=== PATIENT | female | born 1955 ===

== ENCOUNTER 2021-01-28 08:46 | Day surgery (SDC) | payer MEDICARE, BC ==
[2021-01-25 14:01] VITALS: BMI 58.2
[~2021-01-28 08:46] MED LIST: LACTATED RINGERS 1,000 ML IV SCH
[2021-01-28 09:24] VITALS: TEMP 98
[2021-01-28 09:26] LABS: Glucose,Whole Blood 171 mg/dL (75-99)
[2021-01-28] MEDS ORDERED: LACTATED RINGERS 1,000 ML IV ONE (09:28)
[2021-01-28] MEDS ORDERED: MIDAZOLAM 2 MG/2 ML VIAL ONE (09:39)
[2021-01-28] MEDS ORDERED: fentaNYL (PF) 50 MCG/ML 2 ML AMP ONE (09:39)
[2021-01-28] MEDS ORDERED: KETAMINE 10 MG/ML 20 ML VIAL ONE (09:39)
[2021-01-28] MEDS ORDERED: PROPOFOL 10 MG/ML 20 ML VIAL IV ONE (09:39)
[2021-01-28] MEDS ORDERED: LIDOCAINE 1% INJ 10MG/ML (20 ML MDV) ONE (09:39)
[2021-01-28 10:13] VITALS: RESP 18
--- NOTE | 2021-01-28 10:16 | P.GSHP ---
History of Present Illness H&P Date: 01/28/21 CHIEF COMPLAINT: Colon screen HISTORY OF PRESENT ILLNESS: The patient is a 66-year-old female who presents for colon screen. Lower endoscopy was offered for further evaluation and management. PAST MEDICAL HISTORY: Please see list. PAST SURGICAL HISTORY: Please see list. MEDICATIONS: Please see list. ALLERGIES: Please see list. SOCIAL HISTORY: No illicit drug use FAMILY HISTORY: No reports of Crohn disease or ulcerative colitis. REVIEW OF ORGAN SYSTEMS: CONSTITUTIONAL: No reports of fevers or chills. PHYSICAL EXAM: VITAL SIGNS: Stable GENERAL: Well-developed pleasant in no acute distress. HEENT: No scleral icterus. Extraocular movements grossly intact. Moist buccal mucosa. NECK: Supple without lymphadenopathy. CHEST: Unlabored respirations. Equal bilateral excursions. CARDIOVASCULAR: Regular rate and rhythm. Distal 2+ pulses. ABDOMEN: Soft, nontender, nondistended. MUSCULOSKELETAL: No clubbing, cyanosis, or edema. ASSESSMENT: 1. Colon screen. PLAN: 1. Recommend proceeding with a lower endoscopy Past Medical History Past Medical History: Diabetes Mellitus, Hyperlipidemia, Hypertension, Sleep Apnea/CPAP/BIPAP Additional Past Medical History / Comment(s): pneumonia around 2019, needed to be trached and had feeding tube History of Any Multi-Drug Resistant Organisms: MRSA Date of last positivie culture/infection: 2018 MDRO Source:: throat/lungs Past Surgical History: Hysterectomy Additional Past Surgical History / Comment(s): Bilateral Cataracts removed. nose OR as a child Past Anesthesia/Blood Transfusion Reactions: No Reported Reaction Past Psychological History: No Psychological Hx Reported Smoking Status: Never smoker Past Alcohol Use History: None Reported Past Drug Use History: None Reported Medications and Allergies Home Medications Medication Instructions Recorded Confirmed Type Insulin Glargine [Lantus] 37 unit SQ HS 01/25/21 01/25/21 History Metoprolol Tartrate [Lopressor] 50 mg PO HS 01/25/21 01/25/21 History Simvastatin 40 mg PO HS 01/25/21 01/25/21 History lisinopriL 30 mg PO HS 01/25/21 01/28/21 History metFORMIN HCL [Glucophage] 1,000 mg PO BID 01/25/21 01/25/21 History Allergies Allergy/AdvReac Type Severity Reaction Status Date / Time No Known Allergies Allergy Verified 01/28/21 09:14 Surgical - Exam Vital Signs Temp Pulse Resp Pulse Ox 98 F 76 16 94 L 01/28/21 09:22 01/28/21 09:22 01/28/21 09:22 01/28/21 09:22 Results - Labs Abnormal Lab Results - Last 24 Hours (Table) 01/28/21 Range/Units 09:24 POC Glucose (mg/dL) 171 H (75-99) mg/dL
--- NOTE | 2021-01-28 10:33 | P.PCN ---
Date of Procedure: 01/28/21 Description of Procedure: PREOPERATIVE DIAGNOSIS: Colonoscopy screening. Family history colon cancer, father Morbid obesity due to excess calories, BMI 59.5 POSTOPERATIVE DIAGNOSIS: Colonoscopy screening. Family history colon cancer, father Morbid obesity due to excess calories, BMI 59.5 Poor prep OPERATION: Colonoscopy to the ascending colon SURGEON: Lian Roblero MD. ANESTHESIA: MAC. INDICATIONS: The patient is a 66-year-old female who presents for colonoscopy screening. Last colonoscopy over 7 years ago. Benefits and risks were described and informed consent was obtained. DESCRIPTION OF PROCEDURE: The patient had undergone Suprep. The patient had been brought into the operating room and laid in the left lateral decubitus position. After adequate intravenous sedation, the rectum was examined with 2% lidocaine jelly. External hemorrhoids were encountered. The rectal tone was within normal limits. No lesions were palpated in the rectal vault. An Olympus colonoscope was advanced with abdominal wall pressure to the hub of the scope. The scope reached the distal ascending colon. The prep was poor limiting view of the mucosa with moderate brown liquid stool. No large scattered diverticulosis was encountered. No large colonic polyps were found distal the to ascending colon. Retroflexion of the scope demonstrated grade 3 internal hemorrhoids without active bleeding or inflammation. The colon was desufflated. The patient had tolerated the procedure well. Withdrawal time was over 6 minutes. FINDINGS: Aronchick preparation quality scale 4 (1-5) Internal hemorrhoids, grade 3 External prolapsed hemorrhoids, grade 3 No arteriovenous malformations. No large adenomatous polyps distal to ascending colon RECOMMENDATIONS: 1. Recommend barium enema for cecum and ileocecal valve. 2. Recommend 2 days colon prep 3. For high risk history, repeat colonoscopy 3 years, 2023 Plan - Discharge Summary Discharge Rx Participant: No New Discharge Prescriptions: Continue Insulin Glargine [Lantus] 37 unit SQ HS Simvastatin 40 mg PO HS lisinopriL 30 mg PO HS Metoprolol Tartrate [Lopressor] 50 mg PO HS metFORMIN HCL [Glucophage] 1,000 mg PO BID Discharge Medication List Insulin Glargine [Lantus] 37 unit SQ HS 01/25/21 [History] Metoprolol Tartrate [Lopressor] 50 mg PO HS 01/25/21 [History] Simvastatin 40 mg PO HS 01/25/21 [History] lisinopriL 30 mg PO HS 01/25/21 [History] metFORMIN HCL [Glucophage] 1,000 mg PO BID 01/25/21 [History] Follow up Appointment(s)/Referral(s): Lian Roblero MD [STAFF PHYSICIAN] - 02/16/21 Patient Instructions/Handouts: *[facility] - (Anesthesia) Endoscopy Discharge Instructions, Barium Enema (ED), Colonoscopy (DC) Activity/Diet/Wound Care/Special Instructions: Must have completion barium enema. Otherwise Cologaurd in 3 to 5 years. Recommend at least 2 day liquid diet and prep for future colonoscopies. Discharge Disposition: HOME SELF-CARE
[2021-01-28 10:34] VITALS: BP 144/94; PULSE 63
[2021-01-28 11:09] LABS: Glucose,Whole Blood 178 mg/dL (75-99)
== END 2021-01-28 11:20 | disposition home or self-care (01) ==
LOC: ORWHC2ENDO 08:46
PROVIDERS: ATTEND Surgery Plastic and Reconstructive Surgery
DX: Z12.11 Encounter for screening for malignant neoplasm of colon (principal); K64.8 Other hemorrhoids; E11.36 Type 2 diabetes mellitus with diabetic cataract; E66.01 Morbid (severe) obesity due to excess calories; E78.5 Hyperlipidemia, unspecified; I10 Essential (primary) hypertension; G47.33 Obstructive sleep apnea (adult) (pediatric); Z80.0 Family history of malignant neoplasm of digestive organs; Z79.4 Long term (current) use of insulin; Z68.43 Body mass index [BMI] 50.0-59.9, adult
CPT/HCPCS: G0121; J2250; J2001; J3010; J2704

== ENCOUNTER → 2021-03-10 | Outpatient (CLI) | payer MEDICARE, BC ==
--- NOTE | 2021-03-10 13:52 | FL ---
EXAMINATION TYPE: FL barium enema w air contrast DATE OF EXAM: 03/10/2021 COMPARISON: NONE HISTORY: Incomplete colonoscopy and constipation. TECHNIQUE: A double contrast barium enema study is performed. A total of 1 minute 56 seconds of flu oroscopic time was utilized during procedure and 27 images obtained. FINDINGS: Data Analysis Manager view of the abdomen shows overall non-obstructive bowel gas pattern. Some inferior pelvic phleboliths left side. Examination was suboptimal due to patient's large body habitus, significantly redundant colon, and li mited mobility. There is filling to the right colon but not entire cecum as repeatedly we had to stop the examination and add more contrast and water. No obstructing or constricting lesion clearly seen. A moderate blan k segment in the proximal transverse colon shows poor distention but preservation of mucosal folds estes ggesting spasm versus neoplasm. Stricture felt less likely. No reflux of contrast into terminal ileum or the appendix. IMPRESSION: Suboptimal study. No obstructing or constricting lesion. If patient has symptoms persist or recur further investigation with CT exam would be recommended.
== END | disposition home or self-care (01) ==
LOC: RADFLMAIN 08:56
PROVIDERS: ATTEND Surgery Plastic and Reconstructive Surgery
DX: K59.00 Constipation, unspecified (principal)
CPT/HCPCS: 74280